=== PATIENT | female | born 2000 | race Caucasian/White ===

== ENCOUNTER 2025-01-16 23:48 | Emergency (ER) | payer SELFPAY ==
[~2025-01-16] VITALS: Ht 167.6 cm; Wt 84.0 kg
[2025-01-17 00:07] VITALS: BP 107/72; PULSE 96; RESP 16; TEMP 36.7; O2SAT 97
== END 2025-01-17 06:00 | disposition home or self-care (01) ==
LOC: ER 23:48
DX: F10.129 Alcohol abuse with intoxication, unspecified (principal); Y90.9 Presence of alcohol in blood, level not specified
CPT/HCPCS: 99283